=== PATIENT | male | born 1970 | race American Indian/Alaskan Native ===

== ENCOUNTER 2016-08-19 19:50 | Emergency (ER) | payer MEDICARE ==
--- NOTE | 2016-08-19 21:27 | Emergency Department Report ---
HPI - General Chief Complaint: Extremity Injury, Lower Time Seen by Provider: 08/19/16 21:07 - HPI HPI: 46-year-old male presents today with pain in between his fourth and fifth toes 3 weeks. Patient thinks it was related to the shoes he was wearing at the time which she stopped wearing. Describes his pain as 7 out of 10 pain that is only present with certain positioning of the toes. Denies history of similar symptoms. Denies history of diabetes. Denies numbness, weakness, paresthesias. Denies any drainage or bleeding. Denies fever, chills, nausea, vomiting, chest pain, shortness of breath, abdominal pain. ED Past Medical Hx - Past Medical History Previous Medical History?: No - Surgical History Past Surgical History?: No - Social History Smoking Status: Never Smoker Substance Use Type: Alcohol - Medications Home Medications: Home Medications Medication Instructions Recorded Confirmed Last Taken Type Ketoconazole 2% [Nizoral] 1 applicatio TP BID #6 tube 08/19/16 Unknown Rx ED Review of Systems ROS: Stated complaint: RIGHT TOE/FOOT PAIN Other details as noted in HPI Constitutional: denies: chills, fever, malaise Eyes: denies: eye pain ENT: denies: ear pain, throat pain, congestion Respiratory: denies: cough, shortness of breath, wheezing Cardiovascular: denies: chest pain, palpitations Endocrine: no symptoms reported Gastrointestinal: denies: abdominal pain, nausea, vomiting Neurological: denies: headache, weakness, numbness, paresthesias Physical Exam - Physical Exam Vital Signs: Vital Signs 08/19/16 08/19/16 19:57 20:04 Temperature 98.6 F 98.6 F Pulse Rate 62 62 Respiratory 18 18 Rate Blood Pressure 123/85 Blood Pressure 123/85 [Right] O2 Sat by Pulse 97 97 Oximetry Physical Exam: GENERAL: The patient is well-developed and well-nourished. Patient is in NAD. HEAD: Normocephalic. Atraumatic. CHEST/LUNGS: Clear to auscultation throughout. HEART/CARDIOVASCULAR: Regular rate and rhythm. ABDOMEN: Abdomen is soft, nontender. No guarding or rebound tenderness. RIGHT FOOT: Raw, scaly, moist lesion noted over the lateral aspect of right 4th toe. Raw scaly skin noted of all webspaces. Positive for extensive onychmycosis. Normal sensation. Peripheral pulses intact. Capillary refill less than 2 seconds. NEURO: Alert and oriented x 3. Normal gait. ED Course Vital Signs 08/19/16 08/19/16 19:57 20:04 Temperature 98.6 F 98.6 F Pulse Rate 62 62 Respiratory 18 18 Rate Blood Pressure 123/85 Blood Pressure 123/85 [Right] O2 Sat by Pulse 97 97 Oximetry ED Medical Decision Making - Lab Data Vital Signs 08/19/16 08/19/16 19:57 20:04 Temperature 98.6 F 98.6 F Pulse Rate 62 62 Respiratory 18 18 Rate Blood Pressure 123/85 Blood Pressure 123/85 [Right] O2 Sat by Pulse 97 97 Oximetry - Medical Decision Making 46-year-old male presents today with tinea pedis of his right foot. He will be provided with a referral for a foot and ankle specialist. Patient is in no acute distress at this time. He will be discharged home and is encouraged to follow up with a primary care provider. He will be sent home on topical ketoconazole and is encouraged to return to the emergency room for any worsening symptoms. Critical care attestation.: If time is entered above; I have spent that time in minutes in the direct care of this critically ill patient, excluding procedure time. ED Disposition Clinical Impression: Tinea pedis Qualifiers: Laterality: right Qualified Code(s): B35.3 - Tinea pedis Disposition: DISCHARGED TO HOME OR SELFCARE Is pt being admited?: No Does the pt Need Aspirin: No Condition: Stable Instructions: Tinea Pedis (ED) Additional Instructions: Follow-up with primary care provider. Return to the emergency department if symptoms worsen. Prescriptions: Ketoconazole 2% [Nizoral] 1 applicatio TP BID #6 tube Referrals: NOE STOCK DPM [Staff Physician] - 3-5 Days Forms: Work/School Release Form(ED) Time of Disposition: 21:34
[2016-08-19 21:45] VITALS: BP 124/84
== END 2016-08-19 21:50 | disposition home or self-care (01) ==
LOC: ED 19:50
DX: B35.3 Tinea pedis (principal)
CPT/HCPCS: 99282

== ENCOUNTER 2017-10-13 15:04 | Emergency (ER) | payer MEDICARE ==
[2017-10-13 15:29] VITALS: BP 121/84
== END 2017-10-13 21:06 | disposition left against medical advice (07) ==
LOC: ED 15:04
DX: H57.8 Other specified disorders of eye and adnexa (principal); Z53.21 Procedure and treatment not carried out due to patient leaving prior to being seen by health care provider

== ENCOUNTER 2021-05-07 11:34 | Emergency (ER) | payer MEDICARE ==
[2021-05-07 11:44] VITALS: BP 129/93
--- NOTE | 2021-05-07 12:08 | Emergency Department Report ---
ED General Adult HPI - General Chief complaint: Abdominal Pain Stated complaint: RT SIDED PAIN Time Seen by Provider: 05/07/21 11:46 Source: patient Mode of arrival: Ambulatory Limitations: No Limitations - History of Present Illness Initial comments: 51-year-old -[place] male patient presents with complaints of right sided intermittent abdominal pain x3 days. He denies any current pain, states the pain seems to worsen when he lies down. No past medical history or history of abdominal surgeries per patient. When the pain does occur he rates it as a 6/10 in severity and describes it as stabbing. He also denies any dysuria/hematuria/urinary frequency, fever/chills/sweats, constipation, diarrhea, or melena/hematochezia. Patient has not tried any OTC medications for symptoms. He states he is otherwise feeling well. Severity scale (0 -10): 2 - Related Data Previous Rx's Medication Instructions Recorded Last Taken Type Ketoconazole 2% [Nizoral] 1 applicatio TP BID #6 tube 08/19/16 Unknown Rx Allergies Allergy/AdvReac Type Severity Reaction Status Date / Time No Known Allergies Allergy Verified 05/07/21 11:38 ED Review of Systems ROS: Stated complaint: RT SIDED PAIN Other details as noted in HPI Constitutional: denies: chills, diaphoresis, fever, malaise ENT: denies: epistaxis Respiratory: denies: cough Cardiovascular: denies: chest pain Gastrointestinal: abdominal pain. denies: nausea, vomiting, diarrhea, constipation, hematemesis, hematochezia Genitourinary: denies: urgency, dysuria, frequency, hematuria, discharge, testicular pain, testicular mass Musculoskeletal: denies: back pain Skin: denies: rash, lesions Neurological: denies: headache Hematological/Lymphatic: denies: swollen glands ED Past Medical Hx - Past Medical History Previous Medical History?: Yes Additional medical history: high cholesterol - Surgical History Past Surgical History?: No - Social History Smoking Status: Current Every Day Smoker Substance Use Type: Alcohol - Medications Home Medications: Home Medications Medication Instructions Recorded Confirmed Last Taken Type Ketoconazole 2% [Nizoral] 1 applicatio TP BID #6 tube 08/19/16 Unknown Rx ED Physical Exam - General Limitations: No Limitations General appearance: alert, in no apparent distress, obese - Head Head exam: Present: atraumatic, normocephalic - Eye Eye exam: Present: normal appearance. Absent: scleral icterus - Neck Neck exam: Present: normal inspection - Respiratory Respiratory exam: Present: normal lung sounds bilaterally. Absent: respiratory distress - Cardiovascular Cardiovascular Exam: Present: regular rate, normal rhythm - GI/Abdominal GI/Abdominal exam: Present: soft, normal bowel sounds. Absent: distended, tenderness, guarding, rebound, rigid, mass - Neurological Exam Neurological exam: Present: alert, oriented X3, normal gait - Psychiatric Psychiatric exam: Present: normal affect, normal mood - Skin Skin exam: Present: warm, dry, intact, normal color. Absent: rash ED Course Vital Signs 05/07/21 11:43 Temperature 98.5 F Pulse Rate 68 Respiratory 20 Rate Blood Pressure 129/93 [Right] O2 Sat by Pulse 100 Oximetry ED Medical Decision Making - Lab Data Result diagrams: 05/07/21 12:18 05/07/21 12:18 Lab Results 05/07/21 05/07/21 05/07/21 Range/Units 12:18 12:18 Unknown WBC 4.8 (4.5-11.0) K/mm3 RBC 4.57 (3.65-5.03) M/mm3 Hgb 14.3 (11.8-15.2) gm/dl Hct 42.9 (35.5-45.6) % MCV 94 (84-94) fl MCH 31 (28-32) pg MCHC 33 (32-34) % RDW 12.6 L (13.2-15.2) % Plt Count 259 (140-440) K/mm3 Lymph % (Auto) 34.2 (13.4-35.0) % [place] % (Auto) 10.7 H (0.0-7.3) % Eos % (Auto) 1.3 (0.0-4.3) % Baso % (Auto) 0.8 (0.0-1.8) % Lymph # (Auto) 1.6 (1.2-5.4) K/mm3 [place] # (Auto) 0.5 (0.0-0.8) K/mm3 Eos # (Auto) 0.1 (0.0-0.4) K/mm3 Baso # (Auto) 0.0 (0.0-0.1) K/mm3 Seg Neutrophils % 53.0 (40.0-70.0) % Seg Neutrophils # 2.5 (1.8-7.7) K/mm3 Sodium 138 (137-145) mmol/L Potassium 4.0 (3.6-5.0) mmol/L Chloride 101.8 (98-107) mmol/L Carbon Dioxide 24 (22-30) mmol/L Anion Gap 16 mmol/L BUN 9 (9-20) mg/dL Creatinine 0.9 (0.8-1.3) mg/dL Estimated GFR > 60 ml/min BUN/Creatinine Ratio 10 % Glucose 97 (75-100) mg/dL Calcium 9.6 (8.4-10.2) mg/dL Total Bilirubin 0.40 (0.1-1.2) mg/dL AST 20 (5-40) units/L ALT 19 (7-56) units/L Alkaline Phosphatase 70 (35-129) units/L Total Protein 7.9 (6.3-8.2) g/dL Albumin 4.6 (3.9-5) g/dL Albumin/Globulin Ratio 1.4 % Lipase 42 (13-60) units/L Urine Color Yellow (Yellow) Urine Turbidity Clear (Clear) Urine pH 5.0 (5.0-7.0) Ur Specific [place] 1.023 (1.003-1.030) Urine Protein 30 mg/dl (Negative) mg/dL Urine Glucose (UA) Neg (Negative) mg/dL Urine Ketones Neg (Negative) mg/dL Urine Blood Neg (Negative) Urine Nitrite Neg (Negative) Urine Bilirubin Neg (Negative) Urine Urobilinogen 2.0 (<2.0) mg/dL Ur Leukocyte Esterase Neg (Negative) Urine WBC (Auto) < 1.0 (0.0-6.0) /HPF Urine RBC (Auto) 10.0 (0.0-6.0) /HPF U Epithel Cells (Auto) 1.0 (0-13.0) /HPF Urine Mucus 3+ /HPF - Medical Decision Making 51-year-old -[place] male patient presents with complaints of right sided intermittent abdominal pain x3 days. He denies any current pain, states the pain seems to worsen when he lies down. No past medical history or history of abdominal surgeries per patient. When the pain does occur he rates it as a 6/10 in severity and describes it as stabbing. He also denies any dysuria/hematuria/urinary frequency, fever/chills/sweats, constipation, d iarrhea, or melena/hematochezia. Patient has not tried any OTC medications for symptoms. He states he is otherwise feeling well. Physical exam is normal. No acute abnormalities noted on CBC, CMP, or UA. Vitals are within normal limits. Patient to follow-up with PCP within 2 to 3 days, also discussed importance of follow-up with PCP for recheck of blood pressure. Discussed in detail signs and symptoms that should prompt immediate return to the ED with patient, he verbalizes understanding. He is otherwise well-appearing and stable for discharge home Critical care attestation.: If time is entered above; I have spent that time in minutes in the direct care of this critically ill patient, excluding procedure time. ED Disposition Clinical Impression: Abdominal pain, Elevated blood pressure reading in office without diagnosis of hypertension Disposition: 01 HOME / SELF CARE / HOMELESS Is pt being admited?: No Condition: Stable Instructions: Abdominal Pain, Adult, [id number], Preventing Hypertension Referrals: [facility] [Provider Group] - 3-5 Days Forms: Work/School Release Form(ED)
[2021-05-07 12:44] LABS: Basophils % (Auto) 0.8 % (0.0-1.8); Eosinophils # (Auto) 0.1 K/mm3 (0.0-0.4); Eosinophils % (Auto) 1.3 % (0.0-4.3); Hematocrit 42.9 % (35.5-45.6); Hemoglobin 14.3 gm/dl (11.8-15.2); Lymphocytes # (Auto) 1.6 K/mm3 (1.2-5.4); Lymphocytes % (Auto) 34.2 % (13.4-35.0); Mean Corpuscular HGB Conc 33 % (32-34); Mean Corpuscular Volume 94 fl (84-94); Monocytes # (Auto) 0.5 K/mm3 (0.0-0.8); Monocytes % (Auto) 10.7 % (0.0-7.3); Platelet Count 259 K/mm3 (140-440); Red Blood Count 4.57 M/mm3 (3.65-5.03); Red Cell Distribution Width 12.6 % (13.2-15.2)
[2021-05-07 13:06] LABS: Alanine Aminotransferase 19 units/L (7-56); Albumin 4.6 g/dL (3.9-5); BUN/Creatinine Ratio 10; Blood Urea Nitrogen 9 mg/dL (9-20); Calcium 9.6 mg/dL (8.4-10.2); Hemolysis Index 7
[2021-05-07 13:20] LABS: Bilirubin,Urine NEG (Negative); Blood,Urine NEG (Negative); Color,Urine Yellow (Yellow); Mucus,Urine 3+ /HPF; WBC,Urine < 1.0 /HPF (0.0-6.0)
== END 2021-05-07 14:22 | disposition home or self-care (01) ==
LOC: ED 11:34
DX: R10.9 Unspecified abdominal pain (principal); R03.0 Elevated blood-pressure reading, without diagnosis of hypertension; E78.5 Hyperlipidemia, unspecified; F17.200 Nicotine dependence, unspecified, uncomplicated
CPT/HCPCS: 36415; 80053; 81001; 83690; 85025; 99283